=== PATIENT | male | born 1950 | race Caucasian/White ===

== ENCOUNTER 2019-02-02 21:12 | Emergency (ER) | payer BC ==
[2019-02-02] MEDS ORDERED: PREDNISONE 20 MG TAB PO ONE (21:23)
--- NOTE | 2019-02-02 21:24 | Emergency Department Record ---
History of Present Illness - General Chief complaint: Facial Swelling Stated complaint: FACIAL SWELLING Time Seen by Provider: 02/02/19 21:22 Source: Patient Mode of Arrival: Ambulatory Limitations: No limitations - History of Present Illness Initial Comments: 68 yo male presents to ED for evaluation of mild soft-tissue swelling to the area of the right face just anterior to the tragus of the ear. Patient reports that he noticed the swelling this evening, denies dental pain, pain over the area, pain with salivation, or redness to the area. Patient also denies ear pain, swollen nodes, or trauma to the area. MD Complaint: Facial swelling Onset/Timin -: Hour(s) Exposure: Unknown Severity: Mild Treatment Prior to Arrival: None Previous Allergy History: None - Related Data Home Medications Medication Instructions Recorded Confirmed Last Taken Escitalopram Oxalate [Lexapro] 5 mg PO QHS 02/02/19 02/02/19 Unknown Trazodone HCl 50 mg PO DAILY 02/02/19 02/02/19 Unknown Previous Rx's Medication Instructions Recorded Prednisone [Prednisone 20Mg] 20 mg PO TID #15 tab 02/02/19 Allergies Allergy/AdvReac Type Severity Reaction Status Date / Time amoxicillin trihydrate Allergy unknown Unverified 11/03/17 16:16 [From Augmentin] doxycycline Allergy unknown Unverified 11/03/17 16:16 potassium clavulanate Allergy unknown Unverified 11/03/17 16:16 [From Augmentin] Review of Systems Constitutional: Denies: Chills, Fever, Malaise, Night sweats Eyes: Denies: Eye discharge, Eye pain ENT: Denies: Congestion, Ear pain, Epistaxis Respiratory: Denies: Cough, Dyspnea Cardiovascular: Denies: Chest pain, Dyspnea on exertion Endocrine: Denies: Fatigue, Heat or cold intolerance Gastrointestinal: Denies: Abdominal pain, Nausea, Vomiting Genitourinary: Denies: Incontinence, Retention Musculoskeletal: Denies: Arthralgia, Back pain, Gout, Joint swelling Skin: Denies: Bruising, Change in color Neurological: Denies: Abnormal gait, Confusion, Headache, Seizure Psychiatric: Denies: Anxiety Hematological/Lymphatic: Denies: Anemia, Blood Clots Past Medical History - SOCIAL HISTORY Smoking Status: Current every day smoker - RESPIRATORY Hx Respiratory Disorders: Yes Hx Pneumonia: Yes (after shoulder surgery) - CARDIOVASCULAR Hx Cardio Disorders: No - NEURO Hx Neuro Disorders: No - GI Hx GI Disorders: Yes Hx Reflux: Yes (history only) Hx of Polyps: Yes - Hx Genitourinary Disorders: No - ENDOCRINE Hx Endocrine Disorders: No - MUSCULOSKELETAL Hx Musculoskeletal Disorders: Yes Hx Arthritis: Yes - PSYCH Hx Psych Problems: No - HEMATOLOGY/ONCOLOGY Hx Hematology/Oncology Disorders: Yes Hx Cancer: Yes (prostate cancer) Physical Exam - General General Appearance: Alert, Oriented x3, Cooperative, No acute distress Limitations: No limitations - Head Head exam: Atraumatic Head exam detail: Other (There is very mild edema present just anterior to the tragus right mandibular region, no erythema. No pain with palpation on examination, no parotid swelling, no lymphadenopathy is present on examination. Patient has dentures upper oral cavity, no lesions noted.). negative: Abrasion, Contusion, Myers's sign, General tenderness, Hematoma, Laceration - Eye Eye exam: Normal appearance. negative: Periorbital swelling, Periorbital tenderness - ENT Ear exam: negative: Auricular hematoma, Auricular trauma Nasal Exam: negative: Active bleeding, Discharge, Dried blood, Foreign body Mouth exam: negative: Drooling, Laceration, Muffled voice, Tongue elevation - Neck Neck exam: Normal inspection. negative: Meningismus, Tenderness - Respiratory Respiratory exam: Normal lung sounds bilaterally. negative: Rales, Respiratory distress, Rhonchi, Stridor - Cardiovascular Cardiovascular Exam: Regular rate, Normal rhythm, Normal heart sounds - GI/Abdominal GI/Abdominal exam: Soft. negative: Rebound, Rigid, Tenderness - Rectal Rectal exam: Deferred - exam: Deferred - Extremities Extremities exam: Normal inspection. negative: Pedal edema, Tenderness - Back Back exam: Denies: CVA tenderness (R), CVA tenderness (L) - Neurological Neurological exam: Alert, Normal gait, Oriented X3 - Psychiatric Psychiatric exam: Normal affect, Normal mood - Skin Skin exam: Normal color. negative: Abrasion Type of lesion: negative: abrasion Course - Reevaluation(s) Reevaluation #1: 02/02/19 21:33 No evidence for lower dental infection on examination No underlying lesion, mass, or abscess is present on examination. No lymphadenopathy is present. Will evidence for ear infection on examination. Will treat with prednisone with instructions to return to the ED for any redness , worsening of his symptoms, or concerns. Patient verbalizes understanding of all instructions. Disposition Disposition: Discharge Clinical Impression: Right facial swelling Disposition: Home, Self-Care Condition: (2) Stable Instructions: Edema (ED) Additional Instructions: Return to ED if your symptoms worsen or if you have any concerns. Prednisone as directed. Follow-up with your family doctor in 3-5 days as directed. Prescriptions: Prednisone [Prednisone 20Mg] 20 mg PO TID #15 tab Forms: Patient Portal Access Time of Disposition: 21:24 Quality - Quality Measures Quality Measures: N/A - Blood Pressure Screening Does Patient Have Any of the Following: No Blood Pressure Classification: Hypertensive Reading Systolic Measurement: 172 Diastolic Measurement: 78 Screening for High Blood Pressure: < First Hypertensive BP, F/U Documented > [ [id number]] First Hypertensive Follow-up Interventions: Referral to alternative/primary care provider.
== END 2019-02-02 21:35 | disposition home or self-care (01) ==
LOC: ER 21:12
DX: R22.0 Localized swelling, mass and lump, head (principal); F17.210 Nicotine dependence, cigarettes, uncomplicated
CPT/HCPCS: 99282; 99283; J7512